=== PATIENT | male | born 1945 | race Caucasian/White ===

== ENCOUNTER 2021-07-28 20:59 | Inpatient (IN) | payer MEDICARE ==
--- NOTE | 2021-07-28 21:47 | ED ---
SOB HPI - General Chief Complaint: Shortness of Breath Stated Complaint: SOB Source: patient, EMS Mode of arrival: EMS - History of Present Illness Initial Comments: Patient is a 76-year-old male with past history of hypertension, dementia, heart failure who presents emergency department from [facility] on the [place]. Staff called an ambulance because the patient was having increased work of breathing today. He was recently hospitalized at [facility] for congestive heart failure. Patient's medication list that he takes Lasix 20 mg daily and it has been distributed. was concerned that the patient wasn't acting himself. He does have a history of dementia and the a she cannot provide much history. He denies that he feels short of breath however his respiratory rate is 40. He denies any pain including chest pain. Per the patient's record he does wear 5 L of oxygen at all times. Records also indicate that the patient had a lung biopsy done at [facility] however no further history is provided. No report of any fevers. No alleviating, precipitating or modifying factors - Related Data Home Medications Medication Instructions Recorded Confirmed ALPRAZolam [Xanax] 0.25 mg PO TID PRN 07/28/21 07/28/21 Acetaminophen [Tylenol] 650 mg PO Q4H PRN 07/28/21 07/28/21 Apixaban [Eliquis] 5 mg PO HS@2100 07/28/21 07/28/21 Atorvastatin Calcium [Lipitor] 10 mg PO HS@209907/28/21 07/28/21 Calcium Carbonate [Tums] 1,000 mg PO Q6H PRN 07/28/21 07/28/21 Collagenase [Santyl Ointment] 1 applic TOPICAL DAILY PRN 07/28/21 07/28/21 Collagenase [Santyl Ointment] 1 applic TOPICAL HS@2100 07/28/21 07/28/21 Dimethic/Zinc Ox/Vits A,D/Aloe [A 1 applic TOPICAL BID@0900,209907/28/21 07/28/21 and D Diaper Rash Cream] Dimethic/Zinc Ox/Vits A,D/Aloe [A 1 applic TOPICAL DAILY PRN 07/28/21 07/28/21 and D Diaper Rash Cream] Docusate [Colace] 100 mg PO BID@0900,209907/28/21 07/28/21 Donepezil [Aricept] 10 mg PO HS@209907/28/21 07/28/21 Furosemide [Lasix] 20 mg PO DAILY@0600 07/28/21 07/28/21 HYDROcodone/APAP 5-325MG [[place] 1 tab PO Q6HR PRN 07/28/21 07/28/21 5-325] Isosorbide Mononitrate 20 mg PO BID@0900,209907/28/21 07/28/21 Lactose-Reduced Food [Ensure Plus] 240 ml PO BID@0900,1700 07/28/21 07/28/21 Melatonin 3 mg PO HS@2099 PRN 07/28/21 07/28/21 Memantine [Namenda] 10 mg PO DAILY@0900 07/28/21 07/28/21 Metoprolol Tartrate [Lopressor] 50 mg PO BID@0900,209907/28/21 07/28/21 Oxybutynin Chloride 5 mg PO DAILY@0900 07/28/21 07/28/21 Pantoprazole Sodium [Protonix] 40 mg PO BID@0900,209907/28/21 07/28/21 Sertraline [Zoloft] 50 mg PO HS@209907/28/21 07/28/21 Triad Wound Dressing Paste 1 applic TOPICAL DAILY PRN 07/28/21 07/28/21 Triad Wound Dressing Paste 1 applicate TOPICAL HS@209907/28/21 07/28/21 Z-Guard Paste 1 applic TOPICAL BID@0900,209907/28/21 07/28/21 Z-Guard Paste 1 applic TOPICAL DAILY PRN 07/28/21 07/28/21 dronabinoL [Marinol] 2.5 mg PO DAILY@0900 07/28/21 07/28/21 hydrALAZINE HCL [Apresoline] 25 mg PO BID@0900,209907/28/21 07/28/21 polyethylene glycoL 3350 [Miralax] 17 gm PO DAILY@0900 07/28/21 07/28/21 Allergies Allergy/AdvReac Type Severity Reaction Status Date / Time cefuroxime [From Ceftin] AdvReac Unknown Verified 07/28/21 22:25 Review of Systems ROS Statement: Those systems with pertinent positive or pertinent negative responses have been documented in the HPI. ROS Other: All systems not noted in ROS Statement are negative. Past Medical History Past Medical History: Heart Failure, Hypertension, Memory Impairment, Neurologic Disorder, Respiratory Disorder Additional Past Medical History / Comment(s): dementia, mood disorder, Past Surgical History: Unable to Obtain, Coronary Bypass/CABG Past Psychological History: Unable to Obtain Smoking Status: Former smoker Past Alcohol Use History: None Reported Past Drug Use History: None Reported Course Vital Signs 07/28/21 07/28/21 07/28/21 21:05 21:15 21:37 Pulse Rate 80 84 Pulse Rate [ Pulse Oximetery ] Respiratory 42 H 42 H 40 H Rate Blood Pressure 135/73 O2 Sat by Pulse 98 98 Oximetry 07/28/21 07/28/21 22:54 23:01 Pulse Rate 86 Pulse Rate [ 81 Pulse Oximetery ] Respiratory 20 Rate Blood Pressure 126/78 O2 Sat by Pulse 99 Oximetry Medical Decision Making - Medical Decision Making On arrival patient is placed into room 1. A thorough history and physical exam is performed. IV is established laboratory studies were conducted. I did review the patient's transfer packet. The nurse does call the staff at the rehab facility to gain more history. Review of the patient's laboratory studies demonstrates a CT of 2480. Chest x-ray demonstrates pulmonary interstitial edema. Patient is given 60 g of Lasix. Did recommend admission for diuresis for which the patient did agree to. Cardiology will be consult. Patient admitted and made. She remained in stable condition awaiting a bed - Lab Data Result diagrams: 07/28/21 21:33 07/28/21 21:33 Lab Results 07/28/21 07/28/21 07/28/21 Range/Units 21:33 21:33 21:33 WBC 11.4 H (3.8-10.6) k/uL RBC 3.26 L (4.30-5.90) m/uL Hgb 10.8 L (13.0-17.5) gm/dL Hct 32.8 L (39.0-53.0) % MCV 100.4 H (80.0-100.0) fL MCH 33.2 (25.0-35.0) pg MCHC 33.1 (31.0-37.0) g/dL RDW 14.1 (11.5-15.5) % Plt Count 192 (150-450) k/uL MPV 8.5 Neutrophils % 76 % Lymphocytes % 13 % Monocytes % 8 % Eosinophils % 2 % Basophils % 0 % Neutrophils # 8.6 H (1.3-7.7) k/uL Lymphocytes # 1.5 (1.0-4.8) k/uL Monocytes # 0.9 (0-1.0) k/uL Eosinophils # 0.2 (0-0.7) k/uL Basophils # 0.0 (0-0.2) k/uL Macrocytosis Slight PT 12.4 H (9.0-12.0) sec INR 1.2 H (<1.2) APTT 31.2 H (22.0-30.0) sec Sodium 137 (137-145) mmol/L Potassium 4.3 (3.5-5.1) mmol/L Chloride 96 L (98-107) mmol/L Carbon Dioxide 32 H (22-30) mmol/L Anion Gap 9 mmol/L BUN 28 H (9-20) mg/dL Creatinine 1.06 (0.66-1.25) mg/dL Est GFR (CKD-EPI)AfAm 80 (>60 ml/min/1.73 sqM) Est GFR (CKD-EPI)NonAf 69 (>60 ml/min/1.73 sqM) Glucose 148 H (74-99) mg/dL Plasma Lactic Acid Niles (0.7-2.0) mmol/L Calcium 8.2 L (8.4-10.2) mg/dL Magnesium 1.5 L (1.6-2.3) mg/dL Total Bilirubin 0.9 (0.2-1.3) mg/dL AST 38 (17-59) U/L ALT 13 (4-49) U/L Alkaline Phosphatase 103 (38-126) U/L Troponin I (0.000-0.034) ng/mL NT-Pro-B Natriuret Pep pg/mL Total Protein 6.3 (6.3-8.2) g/dL Albumin 2.9 L (3.5-5.0) g/dL Coronavirus (PCR) (Not Detectd) 07/28/21 07/28/21 07/28/21 Range/Units 21:33 21:33 21:33 WBC (3.8-10.6) k/uL RBC (4.30-5.90) m/uL Hgb (13.0-17.5) gm/dL Hct (39.0-53.0) % MCV (80.0-100.0) fL MCH (25.0-35.0) pg MCHC (31.0-37.0) g/dL RDW (11.5-15.5) % Plt Count (150-450) k/uL MPV Neutrophils % % Lymphocytes % % Monocytes % % Eosinophils % % Basophils % % Neutrophils # (1.3-7.7) k/uL Lymphocytes # (1.0-4.8) k/uL Monocytes # (0-1.0) k/uL Eosinophils # (0-0.7) k/uL Basophils # (0-0.2) k/uL Macrocytosis PT (9.0-12.0) sec INR (<1.2) APTT (22.0-30.0) sec Sodium (137-145) mmol/L Potassium (3.5-5.1) mmol/L Chloride (98-107) mmol/L Carbon Dioxide (22-30) mmol/L Anion Gap mmol/L BUN (9-20) mg/dL Creatinine (0.66-1.25) mg/dL Est GFR (CKD-EPI)AfAm (>60 ml/min/1.73 sqM) Est GFR (CKD-EPI)NonAf (>60 ml/min/1.73 sqM) Glucose (74-99) mg/dL Plasma Lactic Acid Niles 2.0 (0.7-2.0) mmol/L Calcium (8.4-10.2) mg/dL Magnesium (1.6-2.3) mg/dL Total Bilirubin (0.2-1.3) mg/dL AST (17-59) U/L ALT (4-49) U/L Alkaline Phosphatase (38-126) U/L Troponin I <0.012 (0.000-0.034) ng/mL NT-Pro-B Natriuret Pep 2480 pg/mL Total Protein (6.3-8.2) g/dL Albumin (3.5-5.0) g/dL Coronavirus (PCR) (Not Detectd) 07/28/21 Range/Units 21:33 WBC (3.8-10.6) k/uL RBC (4.30-5.90) m/uL Hgb (13.0-17.5) gm/dL Hct (39.0-53.0) % MCV (80.0-100.0) fL MCH (25.0-35.0) pg MCHC (31.0-37.0) g/dL RDW (11.5-15.5) % Plt Count (150-450) k/uL MPV Neutrophils % % Lymphocytes % % Monocytes % % Eosinophils % % Basophils % % Neutrophils # (1.3-7.7) k/uL Lymphocytes # (1.0-4.8) k/uL Monocytes # (0-1.0) k/uL Eosinophils # (0-0.7) k/uL Basophils # (0-0.2) k/uL Macrocytosis PT (9.0-12.0) sec INR (<1.2) APTT (22.0-30.0) sec Sodium (137-145) mmol/L Potassium (3.5-5.1) mmol/L Chloride (98-107) mmol/L Carbon Dioxide (22-30) mmol/L Anion Gap mmol/L BUN (9-20) mg/dL Creatinine (0.66-1.25) mg/dL Est GFR (CKD-EPI)AfAm (>60 ml/min/1.73 sqM) Est GFR (CKD-EPI)NonAf (>60 ml/min/1.73 sqM) Glucose (74-99) mg/dL Plasma Lactic Acid Niles (0.7-2.0) mmol/L Calcium (8.4-10.2) mg/dL Magnesium (1.6-2.3) mg/dL Total Bilirubin (0.2-1.3) mg/dL AST (17-59) U/L ALT (4-49) U/L Alkaline Phosphatase (38-126) U/L Troponin I (0.000-0.034) ng/mL NT-Pro-B Natriuret Pep pg/mL Total Protein (6.3-8.2) g/dL Albumin (3.5-5.0) g/dL Coronavirus (PCR) Not Detected (Not Detectd) - EKG Data EKG Comments: EKG demonstrates A. fib with rate of 94. QRS 92. QTC of 472. No acute ST segment elevations or depressions Disposition Clinical Impression: Congestive heart failure Disposition: ADMITTED IP TO THIS HOSP Condition: Serious Is patient prescribed a controlled substance at d/c from ED?: No Decision to Admit Reason: Admit from EC Decision Date: 07/28/21 Decision Time: 22:38
[2021-07-28 21:51] LABS: Basophils % (A) 0 %; Eosinophils # (A) 0.2 k/uL (0-0.7); Eosinophils % (A) 2 %; HCT 32.8 % (39.0-53.0); HGB 10.8 gm/dL (13.0-17.5); Lymphocytes # (A) 1.5 k/uL (1.0-4.8); Lymphocytes % (A) 13 %; MCH 33.2 pg (25.0-35.0); MCHC 33.1 g/dL (31.0-37.0); MCV 100.4 fL (80.0-100.0); Macrocytosis Slight; Mean Platelet Volume 8.5; Monocytes # (A) 0.9 k/uL (0-1.0); Monocytes % (A) 8 %; Neutrophils # (A) 8.6 k/uL (1.3-7.7); Neutrophils % (A) 76 %; Platelet Count 192 k/uL (150-450); RBC 3.26 m/uL (4.30-5.90); RDW 14.1 % (11.5-15.5); WBC 11.4 k/uL (3.8-10.6)
[2021-07-28 22:00] LABS: Albumin 2.9 g/dL (3.5-5.0); Calcium 8.2 mg/dL (8.4-10.2); INR 1.2 (<1.2); Magnesium 1.5 mg/dL (1.6-2.3); Partial Thromboplastin Time 31.2 sec (22.0-30.0); Prothrombin Time 12.4 sec (9.0-12.0); Total Bilirubin 0.9 mg/dL (0.2-1.3); Total Protein 6.3 g/dL (6.3-8.2)
[2021-07-28 22:01] LABS: Potassium 4.3 mmol/L (3.5-5.1)
--- NOTE | 2021-07-28 22:08 | XR ---
EXAMINATION TYPE: XR chest 2V DATE OF EXAM: 07/28/2021 COMPARISON: November 09, 2017 HISTORY: TECHNIQUE: 2 views FINDINGS: Heart is borderline enlarged. There is coarse interstitial density in the lungs. There are sternal wires. There is no definite pleural effusion. IMPRESSION: There is pulmonary interstitial edema which is mostly new compared to last exam. Acute he art failure or acute pneumonia are possible.
[2021-07-28] MEDS ORDERED: FUROSEMIDE 10 MG/ML 10 ML VIAL IV STA (22:37)
[2021-07-28] MEDS ORDERED: NALOXONE 0.4 MG/ML 1 ML VIAL IV PRN (22:38)
[2021-07-28] MEDS: FUROSEMIDE 10 MG/ML 4 ML VIAL IV SCH (23:08)
[2021-07-28] MEDS ORDERED: VITS A D TOPICAL PRN (23:46)
[2021-07-28] MEDS ORDERED: HYDROPHILIC CREAM 180 GM TUBE TOPICAL PRN (23:46)
[2021-07-28] MEDS ORDERED: HYDROcodone/APAP 5-325MG 1 EACH TAB PO PRN (23:46)
[2021-07-28] MEDS ORDERED: ACETAMINOPHEN TAB 325 MG TAB PO PRN (23:46)
[2021-07-28] MEDS ORDERED: CALCIUM CARBONATE 500 MG CHEWABLE PO PRN (23:46)
[2021-07-28] MEDS ORDERED: ZINC OX TOPICAL PRN (23:46)
[2021-07-28] MEDS ORDERED: ALPRAZolam 0.25 MG TAB PO PRN (23:46)
[2021-07-28] MEDS ORDERED: ALOE TOPICAL PRN (23:46)
[2021-07-28] MEDS ORDERED: ZINC OXIDE 20% OINT 28.4 GM TUBE TOPICAL PRN (23:46)
[2021-07-28] MEDS ORDERED: [UNRECOGNIZED DRUG - OTHER] TOPICAL PRN (23:46)
[2021-07-29 05:08] LABS: Basophils % (A) 0 %; Eosinophils # (A) 0.2 k/uL (0-0.7); Eosinophils % (A) 2 %; HCT 35.4 % (39.0-53.0); HGB 11.7 gm/dL (13.0-17.5); Lymphocytes # (A) 1.3 k/uL (1.0-4.8); Lymphocytes % (A) 12 %; MCH 33.9 pg (25.0-35.0); MCHC 33.2 g/dL (31.0-37.0); MCV 102.1 fL (80.0-100.0); Macrocytosis Slight; Mean Platelet Volume 8.4; Monocytes % (A) 9 %; Neutrophils # (A) 7.9 k/uL (1.3-7.7); Neutrophils % (A) 75 %; Platelet Count 184 k/uL (150-450); RBC 3.47 m/uL (4.30-5.90); RDW 14.1 % (11.5-15.5); WBC 10.6 k/uL (3.8-10.6)
[2021-07-29 05:22] LABS: Calcium 8.3 mg/dL (8.4-10.2); Potassium 3.4 mmol/L (3.5-5.1)
[2021-07-29] MEDS: PANTOPRAZOLE 40 MG TABLET PO SCH ×2 (08:53→18:27)
[2021-07-29] MEDS: FUROSEMIDE 10 MG/ML 4 ML VIAL IV SCH ×2 (08:54→17:08)
[2021-07-29] MEDS ORDERED: DOCUSATE 100 MG CAP PO SCH (09:00)
[2021-07-29] MEDS ORDERED: ISOSORBIDE MONONITRATE 20 MG TAB PO SCH (09:00)
[2021-07-29] MEDS ORDERED: polyethylene glycoL 3350 17 GM POWD.PACK PO SCH (09:00)
[2021-07-29] MEDS ORDERED: OXYBUTYNIN CHLORIDE 5 MG TAB PO SCH (09:00)
[2021-07-29] MEDS ORDERED: NON FORMULARY DRUG (Lactose-Reduced Food [Ensure Plus] 237 ML Ml) PO SCH (09:00)
[2021-07-29] MEDS ORDERED: METOPROLOL TARTRATE 50 MG TAB PO SCH (09:00)
[2021-07-29] MEDS ORDERED: MEMANTINE 10 MG TAB PO SCH (09:00)
[2021-07-29] MEDS ORDERED: hydrALAZINE HCL 25 MG TAB PO SCH (09:00)
[2021-07-29] MEDS ORDERED: VITS A & D-WHITE PET-LANOLIN 5 GM OINT.PACK TOPICAL SCH (09:00)
[2021-07-29] MEDS ORDERED: ZINC OXIDE 20% OINT 28.4 GM TUBE TOPICAL SCH (09:00)
--- NOTE | 2021-07-29 09:50 | P.CRDCN ---
History of Present Illness Consult date: 07/29/21 History of present illness: HISTORY OF PRESENT ILLNESS: This is a 76-year-old male with a past medical history significant for dementia, congestive heart failure, coronary artery disease with previous CABG, hypertension, former nicotine dependence, and chronic hypoxic respiratory failure with home oxygen use. 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 We have been asked to see the patient in consultation for CHF. Patient examined at the bedside. Patient is confused and unable to provide any history. He is not sure why he is in the hospital. He was apparently brought to the hospital from [facility] on the [place] due to shortness of breath. According to the ER note, the patient was recently at [facility] for CHF. The patient currently denies any shortness of breath. Denies chest pain or pressure. Blood pressure 125/77. He is on 4 L nasal cannula with oxygen saturations greater then 92%. EKG reveals atrial fibrillation with nonspecific ST-T wave changes. Incomplete right bundle branch block. Left axis deviation. Controlled ventricular rate. Chest xray there is pulmonary interstitial edema which is mostly new comparable exam. Acute heart failure or acute pneumonia are possible. Laboratory data: WBC 10.6. Hemoglobin 11.7. Platelet count 184. Sodium 137. Potassium 3.4. BUN 25. Creatinine 1.01. Lactic acid 2.0. Troponin negative 1. ProBNP 2480. Current home cardiac medications include metoprolol tartrate 50 mg twice a day, Imdur 20 mg twice a day, hydralazine 25 mg twice a day, Lasix 20 mg daily, Eliquis 5 mg at night, and Lipitor 10 mg at night REVIEW OF SYSTEMS: At the time of my exam: Unable to obtain thorough review of systems secondary to confusion PHYSICAL EXAM: VITAL SIGNS: Reviewed. GENERAL: Well-developed in no acute distress. HEENT: Head is normocephalic. Pupils are equal, round. Sclerae anicteric. Mucous membranes of the mouth are moist. Neck supple. No JVD or thyromegaly LUNGS: Respirations even and unlabored. Lungs diminished with bibasilar rales HEART: Irregular rate and rhythm. S1 and S2 heard. ABDOMEN: Soft. Nondistended. Nontender. EXTREMITIES: Normal range of motion. No clubbing or cyanosis. Peripheral pulses intact. No lower extremity edema NEUROLOGIC: Awake and alert. Confused. ASSESSMENT: Acute exacerbation of chronic congestive heart failure, type unknown, echo p ending Persistent atrial fibrillation with controlled ventricular rate, suspect chronic Coronary artery disease with previous CABG Hypertension Hyperlipidemia Chronic hypoxic respiratory failure with home oxygen use Former nicotine dependence Hypokalemia Hypomagnesemia PLAN: Obtain 2-D echo to assess cardiac structure and function Continue IV Lasix Daily weights Accurate I&O Monitor kidney function Replace potassium Replace magnesium Continue additional home cardiac medications Change Eliquis to twice a day dosing for adequate thromboembolic protection Further recommendations pending patient's course Nurse practitioner note has been reviewed by physician. Signing provider agrees with the documented findings, assessment, and plan of care. Past Medical History Past Medical History: Heart Failure, Hypertension, Memory Impairment, Neurologic Disorder, Respiratory Disorder Additional Past Medical History / Comment(s): dementia, mood disorder, Past Surgical History: Unable to Obtain, Coronary Bypass/CABG Past Psychological History: Unable to Obtain Smoking Status: Former smoker Past Alcohol Use History: None Reported Past Drug Use History: None Reported Medications and Allergies Home Medications Medication Instructions Recorded Confirmed Type ALPRAZolam [Xanax] 0.25 mg PO TID PRN 07/28/21 07/28/21 History Acetaminophen [Tylenol] 650 mg PO Q4H PRN 07/28/21 07/28/21 History Apixaban [Eliquis] 5 mg PO HS@209907/28/21 07/28/21 History Atorvastatin Calcium [Lipitor] 10 mg PO HS@209907/28/21 07/28/21 History Calcium Carbonate [Tums] 1,000 mg PO Q6H PRN 07/28/21 07/28/21 History Collagenase [Santyl Ointment] 1 applic TOPICAL DAILY PRN 07/28/21 07/28/21 History Collagenase [Santyl Ointment] 1 applic TOPICAL HS@209907/28/21 07/28/21 History Dimethic/Zinc Ox/Vits A,D/Aloe [A 1 applic TOPICAL BID@899,209907/28/21 07/28/21 History and D Diaper Rash Cream] Dimethic/Zinc Ox/Vits A,D/Aloe [A 1 applic TOPICAL DAILY PRN 07/28/21 07/28/21 History and D Diaper Rash Cream] Docusate [Colace] 100 mg PO BID@0900,209907/28/21 07/28/21 History Donepezil [Aricept] 10 mg PO HS@209907/28/21 07/28/21 History Furosemide [Lasix] 20 mg PO DAILY@0600 07/28/21 07/28/21 History HYDROcodone/APAP 5-325MG [[place] 1 tab PO Q6HR PRN 07/28/21 07/28/21 History 5-325] Isosorbide Mononitrate 20 mg PO BID@0900,209907/28/21 07/28/21 History Lactose-Reduced Food [Ensure Plus] 240 ml PO BID@0900,1700 07/28/21 07/28/21 History Melatonin 3 mg PO HS@2099 PRN 07/28/21 07/28/21 History Memantine [Namenda] 10 mg PO DAILY@0900 07/28/21 07/28/21 History Metoprolol Tartrate [Lopressor] 50 mg PO BID@0900,209907/28/21 07/28/21 History Oxybutynin Chloride 5 mg PO DAILY@0900 07/28/21 07/28/21 History Pantoprazole Sodium [Protonix] 40 mg PO BID@0900,209907/28/21 07/28/21 History Sertraline [Zoloft] 50 mg PO HS@209907/28/21 07/28/21 History Triad Wound Dressing Paste 1 applic TOPICAL DAILY PRN 07/28/21 07/28/21 History Triad Wound Dressing Paste 1 applicate TOPICAL HS@209907/28/21 07/28/21 History Z-Guard Paste 1 applic TOPICAL BID@0900,209907/28/21 07/28/21 History Z-Guard Paste 1 applic TOPICAL DAILY PRN 07/28/21 07/28/21 History dronabinoL [Marinol] 2.5 mg PO DAILY@0900 07/28/21 07/28/21 History hydrALAZINE HCL [Apresoline] 25 mg PO BID@0900,209907/28/21 07/28/21 History polyethylene glycoL 3350 [Miralax] 17 gm PO DAILY@0900 07/28/21 07/28/21 History Allergies Allergy/AdvReac Type Severity Reaction Status Date / Time cefuroxime [From Ceftin] AdvReac Unknown Verified 07/28/21 22:25 Physical Exam Vitals: Vital Signs Temp Pulse Pulse Resp BP BP Pulse Ox 07/29/21 07:28 98.4 F 87 18 125/77 98 07/29/21 05:00 82 19 124/77 97 07/29/21 01:29 82 24 133/99 99 07/28/21 23:01 81 07/28/21 22:54 86 20 126/78 99 07/28/21 21:37 84 40 H 135/73 98 07/28/21 21:15 42 H 07/28/21 21:05 80 42 H 98 Intake and Output 07/28/21 07/29/21 07/29/21 22:59 06:59 14:59 Other: Weight 68.039 kg Results 07/29/21 04:37 07/29/21 04:37 Cardiac Enzymes 07/28/21 07/28/21 Range/Units 21:33 21:33 AST 38 (17-59) U/L Troponin I <0.012 (0.000-0.034) ng/mL Coagulation 07/28/21 Range/Units 21:33 PT 12.4 H (9.0-12.0) sec APTT 31.2 H (22.0-30.0) sec CBC 07/28/21 07/29/21 Range/Units 21:33 04:37 WBC 11.4 H 10.6 (3.8-10.6) k/uL RBC 3.26 L 3.47 L (4.30-5.90) m/uL Hgb 10.8 L 11.7 L (13.0-17.5) gm/dL Hct 32.8 L 35.4 L (39.0-53.0) % Plt Count 192 184 (150-450) k/uL Comprehensive Metabolic Panel 07/28/21 07/29/21 Range/Units 21:33 04:37 Sodium 137 137 (137-145) mmol/L Potassium 4.3 3.4 L (3.5-5.1) mmol/L Chloride 96 L 96 L (98-107) mmol/L Carbon Dioxide 32 H 31 H (22-30) mmol/L BUN 28 H 25 H (9-20) mg/dL Creatinine 1.06 1.01 (0.66-1.25) mg/dL Glucose 148 H 120 H (74-99) mg/dL Calcium 8.2 L 8.3 L (8.4-10.2) mg/dL AST 38 (17-59) U/L ALT 13 (4-49) U/L Alkaline Phosphatase 103 (38-126) U/L Total Protein 6.3 (6.3-8.2) g/dL Albumin 2.9 L (3.5-5.0) g/dL Current Medications Generic Name Dose Route Start Last Admin Trade Name Freq PRN Reason Stop Dose Admin Acetaminophen 650 mg 07/28/21 23:46 Acetaminophen Tab 325 Mg Tab PO Q4H PRN Pain Hydrocodone Bitart/Acetaminophen 1 each 07/28/21 23:46 Hydrocodone/Apap 5-325mg 1 Each Tab PO Q6HR PRN Pain Alprazolam 0.25 mg 07/28/21 23:46 Alprazolam 0.25 Mg Tab PO TID PRN Anxiety 07/22 UNTIL 08/02 Apixaban 5 mg 07/29/21 21:00 Apixaban 5 Mg Tab PO HS@2100 [facility] Protocol Atorvastatin Calcium 10 mg 07/29/21 21:00 Atorvastatin 10 Mg Tab PO HS@2100 [facility] Calcium Carbonate/Glycine 1,000 mg 07/28/21 23:46 Calcium Carbonate 500 Mg Chewable PO Q6H PRN UPSET STOMACH Docusate Sodium 100 mg 07/29/21 09:00 07/29/21 08:53 Docusate 100 Mg Cap PO 100 mg BID@0900,2100 [facility]IE Administration Donepezil HCl 10 mg 07/29/21 21:00 Donepezil 10 Mg Tab PO HS@2100 [facility]IE Dronabinol 2.5 mg 07/29/21 09:00 07/29/21 08:53 Dronabinol 2.5 Mg Cap PO 2.5 mg DAILY@0900 [facility]IE Administration Furosemide 40 mg 07/29/21 00:00 07/29/21 08:54 Furosemide 10 Mg/Ml 4 Ml Vial IV 40 mg Q8HR MACIE Administration Hydralazine HCl 25 mg 07/29/21 09:00 07/29/21 08:54 Hydralazine Hcl 25 Mg Tab PO 25 mg BID@0900,2100 [facility] Administration Isosorbide Mononitrate 20 mg 07/29/21 09:00 Isosorbide Mononitrate 20 Mg Tab PO BID@0900,2100 [facility] Melatonin 3 mg 07/29/21 21:00 Melatonin 3 Mg Tablet PO HS@2100 PRN SLEEP Memantine 10 mg 07/29/21 09:00 07/29/21 08:53 Memantine 10 Mg Tab PO 10 mg DAILY@0900 [facility] Administration Metoprolol Tartrate 50 mg 07/29/21 09:00 07/29/21 08:53 Metoprolol Tartrate 50 Mg Tab PO 50 mg BID@0900,2099 [facility]IE Administration Multi-Ingred Cream/Lotion/Oil/Oint 1 applic 07/28/21 23:46 Hydrophilic Cream 180 Gm Tube TOPICAL DAILY PRN SKIN [employer]TEGRITY Multi-Ingred Cream/Lotion/Oil/Oint 1 applic 07/29/21 21:00 Hydrophilic Cream 180 Gm Tube TOPICAL HS@2100 [facility] Multi-Ingredient Ointment 1 applic 07/29/21 09:00 Zinc Oxide 20% Oint 28.4 Gm Tube TOPICAL BID@09,2099 [facility] Multi-Ingredient Ointment 1 applic 07/28/21 23:46 Zinc Oxide 20% Oint 28.4 Gm Tube TOPICAL DAILY PRN EXCORIATION Naloxone HCl 0.2 mg 07/28/21 22:38 Naloxone 0.4 Mg/Ml 1 Ml Vial IV Q2M PRN Opioid Reversal Oxybutynin Chloride 5 mg 07/29/21 09:00 07/29/21 08:54 Oxybutynin Chloride 5 Mg Tab PO 5 mg DAILY@0900 [facility] Administration Pantoprazole Sodium 40 mg 07/29/21 07:30 07/29/21 08:53 Pantoprazole 40 Mg Tablet PO 40 mg AC-BID [facility]IE Administration Polyethylene Glycol 17 gm 07/29/21 09:00 07/29/21 08:57 Polyethylene Glycol 3350 17 Gm Powd.Pack PO Not Given DAILY@0900 [facility] Sertraline HCl 50 mg 07/29/21 21:00 Sertraline 50 Mg Tab PO HS@2100 [facility] White Petrol/Mineral Oil/Lanolin 1 gm 07/29/21 09:00 Vits A & D-White Pet-Lanolin 5 Gm Oint.Pack TOPICAL BID@0900,2099 [facility] Intake and Output 07/28/21 07/29/21 07/29/21 22:59 06:59 14:59 Other: Weight 68.039 kg 07/29/21 04:37 07/29/21 04:37
--- NOTE | 2021-07-29 10:48 | P.HPIM ---
History of Present Illness This is a pleasant 76 years old male with past medical history of Heart Failure, Hypertension, Memory Impairment, IPF pulmonary fibrosis, coronary artery disease status post CABG, chronic hypoxic respiratory failure on 4 L oxygen via nasal cannula, dementia Patient is poor historian and information were obtained from his when I call her [id number] [birth year], her name is Victoria, she told me at baseline he is on 4 L of oxygen and his been in and out of the hospital about 14 time since last February. Also he has a right lung biopsy by Dr. Gregorio many years ago and has been told he has COPD/pulmonary fibrosis, patient stated that he has history of IPF. Also he is following up with cell attendant helper at [facility] for his CHF. She states that he was in [facility] from June 12 toe July 03, he got better and he was sent to rehab but from there he was referred to [facility] on the date 07/06 and he was discharged on July 19. However family got concerned yesterday because he sleeps a lot and any physical activity become too much for him and very hard for him. He states was still at [facility] when they sent him to this facility for shortness of breath and hypoxia although the patient does not aware of this problem. Also he has been sleeping a lot and felt very warm they thought he had a fever, heart rate was in 40s so they contacted the doctor who referred him to this facility. No smoking, alcohol or illicit drugs. Currently patient is awake and alert, he knows in hospital, is oriented to place and partially to time. Not per percent. He denies shortness of breath although he was tachypneic. He denies chest pain or abdominal pain. No nausea vomiting. No diarrhea or dysuria. No leg swelling or pain or rash. Also states that his been losing weight and he was not eating much she was considered as a due to bad taste from oxybutynin home she wants to be stopped which was discontinued. Also I discussed the CODE STATUS with the and she met him DO NOT RESUSCITATE/DO NOT INTUBATE Vitals are stable and he is saturating 98% on 4 L oxygen via nasal cannula. Labs reviewed CBC is unremarkable except for mild anemia with hemoglobin 11.7. Mild leukocytosis on admission 11.4 came back to normal at 10.6. INR was 1.2 yesterday. BMP showing mild hypokalemia at 3.4 rest of the BMP is unremarkable. Liver enzymes not elevated. Armstrong Verres not detected. Chest x-ray: There is pulmonary interstitial edema which is mostly new compared to last exam. Acute bilateral inferior Review of Systems CONSTITUTIONAL: No fever, no malaise, no fatigue. HEENT: No recent visual problems or hearing problems. Denied any sore throat. CARDIOVASCULAR: No leg swelling, no palpitations, no syncope. PULMONARY: No chest wall tenderness, no hemoptysis. GASTROINTESTINAL: No diarrhea, no nausea, no vomiting, no abdominal pain. Normoactive bowel sounds. NEUROLOGICAL: No headaches, no weakness, no numbness. HEMATOLOGICAL: Denies any bleeding or petechiae. GENITOURINARY: Denies any burning micturition, frequency, or urgency. MUSCULOSKELETAL/RHEUMATOLOGICAL: Denies any joint pain, swelling, or any muscle pain. ENDOCRINE: Denies any polyuria or polydipsia. Past Medical History Past Medical History: Heart Failure, Hypertension, Memory Impairment, Neurologic Disorder, Respiratory Disorder Additional Past Medical History / Comment(s): dementia, mood disorder, Past Surgical History: Unable to Obtain, Coronary Bypass/CABG Past Psychological History: Unable to Obtain Smoking Status: Former smoker Past Alcohol Use History: None Reported Past Drug Use History: None Reported Medications and Allergies Home Medications Medication Instructions Recorded Confirmed Type ALPRAZolam [Xanax] 0.25 mg PO TID PRN 07/28/21 07/28/21 History Acetaminophen [Tylenol] 650 mg PO Q4H PRN 07/28/21 07/28/21 History Apixaban [Eliquis] 5 mg PO HS@209907/28/21 07/28/21 History Atorvastatin Calcium [Lipitor] 10 mg PO HS@209907/28/21 07/28/21 History Calcium Carbonate [Tums] 1,000 mg PO Q6H PRN 07/28/21 07/28/21 History Collagenase [Santyl Ointment] 1 applic TOPICAL DAILY PRN 07/28/21 07/28/21 History Collagenase [Santyl Ointment] 1 applic TOPICAL HS@2100 07/28/21 07/28/21 History Dimethic/Zinc Ox/Vits A,D/Aloe [A 1 applic TOPICAL BID@0900,209907/28/21 07/28/21 History and D Diaper Rash Cream] Dimethic/Zinc Ox/Vits A,D/Aloe [A 1 applic TOPICAL DAILY PRN 07/28/21 07/28/21 History and D Diaper Rash Cream] Docusate [Colace] 100 mg PO BID@0900,209907/28/21 07/28/21 History Donepezil [Aricept] 10 mg PO HS@209907/28/21 07/28/21 History Furosemide [Lasix] 20 mg PO DAILY@0600 07/28/21 07/28/21 History HYDROcodone/APAP 5-325MG [[place] 1 tab PO Q6HR PRN 07/28/21 07/28/21 History 5-325] Isosorbide Mononitrate 20 mg PO BID@0900,209907/28/21 07/28/21 History Lactose-Reduced Food [Ensure Plus] 240 ml PO BID@0900,1700 07/28/21 07/28/21 History Melatonin 3 mg PO HS@2099 PRN 07/28/21 07/28/21 History Memantine [Namenda] 10 mg PO DAILY@0900 07/28/21 07/28/21 History Metoprolol Tartrate [Lopressor] 50 mg PO BID@0900,209907/28/21 07/28/21 History Oxybutynin Chloride 5 mg PO DAILY@0900 07/28/21 07/28/21 History Pantoprazole Sodium [Protonix] 40 mg PO BID@0900,209907/28/21 07/28/21 History Sertraline [Zoloft] 50 mg PO HS@209907/28/21 07/28/21 History Triad Wound Dressing Paste 1 applic TOPICAL DAILY PRN 07/28/21 07/28/21 History Triad Wound Dressing Paste 1 applicate TOPICAL HS@209907/28/21 07/28/21 History Z-Guard Paste 1 applic TOPICAL BID@0900,209907/28/21 07/28/21 History Z-Guard Paste 1 applic TOPICAL DAILY PRN 07/28/21 07/28/21 History dronabinoL [Marinol] 2.5 mg PO DAILY@0900 07/28/21 07/28/21 History hydrALAZINE HCL [Apresoline] 25 mg PO BID@0900,2100 07/28/21 07/28/21 History polyethylene glycoL 3350 [Miralax] 17 gm PO DAILY@0900 07/28/21 07/28/21 History Allergies Allergy/AdvReac Type Severity Reaction Status Date / Time cefuroxime [From Ceftin] AdvReac Unknown Verified 07/28/21 22:25 Physical Exam Vitals: Vital Signs Temp Pulse Pulse Resp BP BP Pulse Ox 07/29/21 07:28 98.4 F 87 18 125/77 98 07/29/21 05:00 82 19 124/77 97 07/29/21 01:29 82 24 133/99 99 07/28/21 23:01 81 07/28/21 22:54 86 20 126/78 99 07/28/21 21:37 84 40 H 135/73 98 07/28/21 21:15 42 H 07/28/21 21:05 80 42 H 98 Intake and Output 07/28/21 07/29/21 07/29/21 22:59 06:59 14:59 Other: Weight 68.039 kg GENERAL: The patient is alert and oriented x3, not in any acute distress. Well developed, well nourished. HEENT: Pupils are round and equally reacting to light. EOMI. No scleral icterus. No conjunctival pallor. Normocephalic, atraumatic. No pharyngeal erythema. No thyromegaly. CARDIOVASCULAR: S1 and S2 present. No murmurs, rubs, or gallops. -PULMONARY: Chest is clear to auscultation, no wheezing. Bilateral crepitation crackles. ABDOMEN: Soft, nontender, nondistended, normoactive bowel sounds. No palpable organomegaly. MUSCULOSKELETAL: No joint swelling or deformity. EXTREMITIES: No cyanosis, clubbing, or pedal edema. NEUROLOGICAL: Gross neurological examination did not reveal any focal deficits. SKIN: No rashes. No petechiae Results CBC & Chem 7: 07/29/21 04:37 07/29/21 04:37 Labs: Abnormal Lab Results - Last 24 Hours (Table) 07/28/21 07/28/21 07/28/21 Range/Units 21:33 21:33 21:33 WBC 11.4 H (3.8-10.6) k/uL RBC 3.26 L (4.30-5.90) m/uL Hgb 10.8 L (13.0-17.5) gm/dL Hct 32.8 L (39.0-53.0) % MCV 100.4 H (80.0-100.0) fL Neutrophils # 8.6 H (1.3-7.7) k/uL PT 12.4 H (9.0-12.0) sec INR 1.2 H (<1.2) APTT 31.2 H (22.0-30.0) sec Potassium (3.5-5.1) mmol/L Chloride 96 L (98-107) mmol/L Carbon Dioxide 32 H (22-30) mmol/L BUN 28 H (9-20) mg/dL Glucose 148 H (74-99) mg/dL Calcium 8.2 L (8.4-10.2) mg/dL Magnesium 1.5 L (1.6-2.3) mg/dL Albumin 2.9 L (3.5-5.0) g/dL 07/29/21 07/29/21 Range/Units 04:37 04:37 WBC (3.8-10.6) k/uL RBC 3.47 L (4.30-5.90) m/uL Hgb 11.7 L (13.0-17.5) gm/dL Hct 35.4 L (39.0-53.0) % MCV 102.1 H (80.0-100.0) fL Neutrophils # 7.9 H (1.3-7.7) k/uL PT (9.0-12.0) sec INR (<1.2) APTT (22.0-30.0) sec Potassium 3.4 L (3.5-5.1) mmol/L Chloride 96 L (98-107) mmol/L Carbon Dioxide 31 H (22-30) mmol/L BUN 25 H (9-20) mg/dL Glucose 120 H (74-99) mg/dL Calcium 8.3 L (8.4-10.2) mg/dL Magnesium (1.6-2.3) mg/dL Albumin (3.5-5.0) g/dL Assessment and Plan Assessment: Acute CHF, unknown ejection fraction Idiopathic pulmonary fibrosis chronic hypoxic respiratory failure on 4 L/m of oxygen at home/half-way. Hypertension Dementia and memory impairment History of coronary artery disease status post CABG. Poor appetite and decrease wait probably due to his illnesses and recent stroke. Deconditioning and generalized weakness No code, discussed with Plan: This is a pleasant 76 years old male who presents with CHF and pulmonary fibrosis. Continue with diuretic and monitor input and output and electrolytes. Echocardiogram Cardiology consult Labs and medication were reviewed.. Continue same treatment. Continue with symptomatic treatment. Resume home medication. Monitor lytes and vitals. DVT and GI prophylaxis. Further recommendations depends on the clinical course of the patient DVT prophylaxis: Eliquis GI Prophylaxis: Pepcid PT/OT: Pending Prognosis is guarded
[2021-07-29] MEDS: POTASSIUM CHLORIDE ER 20 MEQ TAB.ER PO SCH (14:27)
[2021-07-29 14:39] VITALS: RESP 17
[2021-07-29 18:19] VITALS: BP 129/71; PULSE 101; TEMP 98.3
[2021-07-29] MEDS: MAGNESIUM SULFATE-D5W PMX 1 GM in DEXTROSE/WATER 1 100ML.BAG IVPB SCH (18:27)
[2021-07-29] MEDS ORDERED: FAMOTIDINE 20 MG/2 ML VIAL IV SCH (21:00)
[2021-07-29] MEDS ORDERED: ATORVASTATIN 10 MG TAB PO SCH (21:00)
[2021-07-29] MEDS ORDERED: APIXABAN 5 MG TAB PO SCH ×2 (21:00)
[2021-07-29] MEDS ORDERED: SERTRALINE 50 MG TAB PO SCH (21:00)
[2021-07-29] MEDS ORDERED: MELATONIN 3 MG TABLET PO PRN (21:00)
[2021-07-29] MEDS ORDERED: DONEPEZIL 10 MG TAB PO SCH (21:00)
[2021-07-29] MEDS ORDERED: HYDROPHILIC CREAM 180 GM TUBE TOPICAL SCH (21:00)
--- NOTE | 2021-07-31 09:37 | ECHOF ---
Referral Reason:LV function, CHF MEASUREMENTS -------- HEIGHT: 177.8 cm WEIGHT: 68.0 kg BP: 125/77 RVIDd: 3.6 cm (< 3.3) IVSd: 1.7 cm (0.6 - 1.1) LVIDd: 4.4 cm (3.9 - 5.3) LVPWd: 1.6 cm (0.6 - 1.1) IVSs: 1.8 cm LVIDs: 3.2 cm LVPWs: 1.6 cm LAESV Index (A-L): 32.37 ml/m Ao Diam: 3.2 cm (2.0 - 3.7) AV Cusp: 1.7 cm (1.5 - 2.6) MV EXCURSION: 20.468 mm (> 18.000) MV EF SLOPE: 76 mm/s (70 - 150) EPSS: 0.7 cm AR PHT: 805 ms RAP: 5.00 mmHg RVSP: 30.00 mmHg FINDINGS -------- This was a technically adequate study. The left ventricular size is normal. There is moderate concentric left ventricular hypertrophy. O verall left ventricular systolic function is low-normal with, an EF between 50 - 55 %. The right ventricle is mildly enlarged. LA is midly dilated 29-33ml/m2. The right atrial size is normal. Interatrial and interventricular septum intact. There is moderate aortic regurgitation. Moderate mitral regurgitation is present. Mild tricuspid regurgitation present. There is no evidence of pulmonary hypertension. The right v entricular systolic pressure, as measured by Doppler, is 30.00mmHg. There is no pulmonic regurgitation present. The aortic root size is normal. IVC Not well visulized. There is no pericardial effusion. CONCLUSIONS -------- 1. The left ventricular size is normal. 2. There is moderate concentric left ventricular hypertrophy. 3. Overall left ventricular systolic function is low-normal with, an EF between 50 - 55 %. 4. The right ventricle is mildly enlarged. 5. LA is midly dilated 29-33ml/m2. 6. There is moderate aortic regurgitation. 7. Moderate mitral regurgitation is present. 8. Mild tricuspid regurgitation present. JEWEL SAWYER: Jeimy Tapia [facility]
== END 2021-07-29 19:20 | disposition hospice, home (50) | DRG 292 ==
LOC: EC 20:59 → 4SSUR 22:38
PROVIDERS: ADMIT Hospitalist; ATTEND Hospitalist
PROC: 3E0F7SF Introduction of Other Gas into Respiratory Tract, Via Natural or Artificial Opening (ICD-10-PCS; principal; 2021-07-29)
DX: I11.0 Hypertensive heart disease with heart failure (principal); I48.19 Other persistent atrial fibrillation; J96.11 Chronic respiratory failure with hypoxia; I25.10 Atherosclerotic heart disease of native coronary artery without angina pectoris; I45.10 Unspecified right bundle-branch block; Z20.822 Contact with and (suspected) exposure to COVID-19; R41.0 Disorientation, unspecified; I50.9 Heart failure, unspecified; J84.10 Pulmonary fibrosis, unspecified; D64.9 Anemia, unspecified; D72.829 Elevated white blood cell count, unspecified; I08.3 Combined rheumatic disorders of mitral, aortic and tricuspid valves; E83.42 Hypomagnesemia; J44.9 Chronic obstructive pulmonary disease, unspecified; F39 Unspecified mood [affective] disorder; E78.5 Hyperlipidemia, unspecified; E87.6 Hypokalemia; F03.90 Unspecified dementia, unspecified severity, without behavioral disturbance, psychotic disturbance, mood disturbance, and anxiety; Z87.891 Personal history of nicotine dependence; Z51.5 Encounter for palliative care; Z79.01 Long term (current) use of anticoagulants; Z79.899 Other long term (current) drug therapy; Z86.73 Personal history of transient ischemic attack (TIA), and cerebral infarction without residual deficits; Z95.1 Presence of aortocoronary bypass graft; Z88.1 Allergy status to other antibiotic agents
CPT/HCPCS: 36415; 71046; 80048; 80053; 83605; 83735; 83880; 84484; 85025; 85610; 85730; 87635; 93005; 93306; 96374; 99285